=== PATIENT | female | born 1950 | race Caucasian/White ===

== ENCOUNTER 2025-08-09 01:10 | Inpatient (IN) | payer MEDICARE, BC ==
[~2025-08-09] VITALS: Ht 162.6 cm; Wt 83.0 kg
[~2025-08-09 01:10] MED LIST: METH500T PO
[2025-08-09 02:05] LABS: MEAN PLATELET VOLUME 8.7 FL (7.4-10.4); RED CELL DISTRIBUTION WIDTH 13.7 % (11.5-14.5)
[2025-08-09] MEDS: ondansetron/PF 4mg/2ml inj IV ONE (02:30)
[2025-08-09] MEDS: fentaNYL/PF 50MCG/1 ML 2ML syringe IV ONE (02:36)
[2025-08-09 02:50] LABS: CREATININE 0.76 MG/DL (0.40-0.90); TOTAL CARBON DIOXIDE 30.1 MMOL/L (24-32); eCRCL 55 ML/MIN; eGFR 74 ML/MIN
--- NOTE | 2025-08-09 02:50 | Physician Documentation ---
History of Present Illness ~ Chief Complaint: Abdominal Pain Stated Complaint: SEE CHIEF COMPLAINT M ALS Time Seen by MD: 02:48 Mode of Arrival: EMS HPI Patient presents to the emergency room with abdominal pain that has been going on the past few days. History of pancreatitis. She states this feels similar but more severe. She does not drink alcohol and reports no new medications. She did switch from ibuprofen to leave the past few days. She takes daily NSAIDs. No history of heartburn. Bowel movements reported to be soft and sticky but no black stools or blood. Positive nausea. Upon previous admission for pancreatitis no cause could be found for her pancreatitis. She is status post cholecystectomy. Medication Reconciliation Allergies: Uncoded Allergies: PENICILLIN (Allergy, Intermediate, rash, 06/30/13) Scheduled Methocarbamol (Robaxin), 500 MG PO TID Past Medical History Past Medical History: No Pertinent History Past Surgical History: cholecystectomy Alcohol Use: None Drug Use: none Lives with: Family Lives In: Home Occupation: employed Review of Systems ROS All review of systems negative except as per HPI Physical Exam Vital Signs: Temperature: 98.7, Heart Rate: 83, Respiratory Rate: 11, BP: 182/71, Pulse Oximetry: 97, Weight: 83.000 Oxygen Flow Rate: 0 Physical Exam General: Patient is awake, alert, oriented x4 in no acute distress Head: Normocephalic and atraumatic. Eyes: Conjunctival normal. EOMI. PERRL. ENT: Mucous membranes moist. Neck: Supple, trachea is midline. Chest: Clear to auscultation bilaterally without rales, rhonchi, or wheezes. There is no accessory muscle use or retractions. Cardiac: RRR without murmurs, gallops, or rubs. Abd: Soft, nondistended, diffuse tenderness to palpation without peritonitis Progress Results/Orders Results/Orders Orders - LALITO SEYOMUR MD Urinalysis, Cult If Indicated (08/09/25 01:30) Ct Abdomen Pelvis (08/09/25 02:25) LA (08/09/25 01:54) Page Hospitalist (08/09/25 03:23) Fill Out Med Reconciliation (08/09/25 03:23) Completed Orders - LALITO SEYMOUR MD Cbc/Diff (08/09/25 01:30) BMP (08/09/25 01:30) Lipase (08/09/25 01:30) CMP (08/09/25 01:30) Ondansetron Inj. (Zofran 4mg/2ml Vial) (08/09/25 01:55) Fentanyl/Pf (Fentanyl 0.05 Mg/Ml Syringe (08/09/25 01:55) Ct Abdomen Pelvis (08/09/25 02:25) Morphine 4mg/Ml Inj. (Morphine Inj.) (08/09/25 02:55) Normal Saline 1000ml (0.9% Sodium Chlori (08/09/25 03:15) Medications Received in ER Medications (Trade) Dose Ordered Sig/Kiesha Route PRN Reason Start Time Stop Time Status Last Admin Dose Admin (Zofran 4mg/2ml vial) 4 mg ONCE ONCE IV 08/09/25 01:55 08/09/25 01:56 DC 08/09/25 02:30 4 MG (morphine inj.) 2 mg ONCE ONCE IV 08/09/25 02:55 08/09/25 02:56 DC 08/09/25 02:58 2 MG (0.9% sodium chloride (NS) 1000ml IV soln) 2,000 ml ONCE ONCE IVB 08/09/25 03:15 08/09/25 03:16 DC 08/09/25 03:34 2,000 ML Vital Signs 08/09/25 08/09/25 01:26 01:31 Temp 98.7 Pulse 83 Resp 11 B/P (MAP) 182/71 Pulse Ox 97 O2 Flow Rate 0 Laboratory Tests Test 08/09/25 01:39 08/09/25 03:32 White Blood Count 12.8 H Red Blood Count 4.93 Hemoglobin 13.9 Hematocrit 42.0 Mean Corpuscular Volume 85.0 Mean Corpuscular Hemoglobin 28.3 Mean Corpuscular Hemoglobin Concent 33.2 Red Cell Distribution Width 13.7 Platelet Count 240 Mean Platelet Volume 8.7 Neutrophils (%) (Auto) 90.7 H Lymphocytes (%) (Auto) 4.7 L Monocytes (%) (Auto) 4.6 Eosinophils (%) (Auto) 0 Basophils (%) (Auto) 0 Neutrophils # (Auto) 11.6 H Lymphocytes # (Auto) 0.6 L Monocytes # (Auto) 0.6 Eosinophils # (Auto) 0.0 Basophils # (Auto) 0.0 CBC Comment Sodium Level 139 Potassium Level 4.2 Chloride Level 103 Carbon Dioxide Level 30.1 Anion Gap 6 L Blood Urea Nitrogen 17 Creatinine 0.76 Estimated GFR/1.73 m2 74 BUN/Creatinine Ratio 22.4 H Glucose Level 200 H Calcium Level 8.0 L Total Bilirubin 0.4 Aspartate Amino Transf (AST/SGOT) 144 H Alanine Aminotransferase (ALT/SGPT) 97 H Alkaline Phosphatase 91 Total Protein 6.8 Albumin 3.7 Globulin 3.1 Albumin/Globulin Ratio 1.2 Lipase > 375 H Chemistry Comments Medical Decision Making Additional information obtaine: old records Findings Patient presents to the emergency room with abdominal pain. Workup consistent with pancreatitis. IV fluids initiated. That has patient's lipase that has off the charts we will admit Diff Dx GI Bleed:Consideration: Include: AE fistula, Angiodysplasia, Bleeding d iathesis, Blood loss anemia, Carcinoma, Diverticulosis, Diverticulitis, Esophageal varicies, Esophagitis, Gastritis, Gastroenteritis, Inflammatory BD, Cassidy-Wiggins syndrome, Meckel's diverticulum, PUD, Other Diff Dx Pain:Considerations: Include: AAA, -Complete, - Incomplete, -Inevitable, -Missed, -Threatened, Abruptio placentae, Angina/DE, Aortic dissection, Appendicitis, Bowel obstruction, Cholangitis, Cholecystitis, Cholelithasis, Constipation, Diverticular disease, Dysmenorrhea, Ectopic , Esophageal rupture, Esophagitis, Gastritis/PUD, Gastroenteritis, GI hemorrhage, Hernia, Hepatitis, Inflammatory BD, Ischemic bowel, Mass, Ovarian cyst/torsion, Pancreatitis, PID, Porphyria, Trauma, in traabdominal, Urinary obstruction, Urinary tract infection, Urolithiasis, Other Diff Dx N/V/D:Considerations: Include: Appendicitis, Bowel obstruction, Dehydration, DKA, Diarrhea - bacterial, Diarrhea - parasitic, Diarrhea - viral, Diverticulitis, Diverticulosis, Drug toxicity, Electrolyte imbalance, Food poisoning, Gastroenteritis, GE reflux, GI bleed, Hepatitis, Hernia, Hypovolemia, Hypotension, Inflammatory BD, Impaction, Malnutrition, Pancreatitis, , PUD, Renal failure, Urolithiasis, Urinary obstruction, UTI, Other Diff Dx Rectal:Considerations: Include: Fissure, Fistula, Foreign body, Impaction, Perirectal abscess, Rectal prolapse, Subcutaneous abscess, Thrombosed hemorrhoid, Ulcer, UTI, Other Departure Admitted to Inpatient Unit: yes, to hospitalist Impression: Primary Impression: Pancreatitis Condition: Guarded Referrals: NO PRIMARY CARE PROVIDER (PCP) Signature Scribe Signature: No scribe Attestation: The note accurately reflects work and decisions made by me.Lalito Seymour MD 08/09/25 03:54 LALITO SEYMOUR MD Aug 09, 2025 02:50
[2025-08-09] MEDS: morphine 4 MG/ML inj SYRINge IV ONE (02:58)
--- NOTE | 2025-08-09 03:20 | RADIOLOGY REPORT ---
Exam: CT CT ABDOMEN PELVIS History: Abdominal pain COMPARISON: None Technique: Multidetector spiral CT of the abdomen and pelvis was performed from lung bases to pubic symphysis. Intravenous contrast was administered during this examination. Portal venous imaging was obtained. Axial, coronal and sagittal multiplanar reformats were performed by the technologist on a separate workstation. Radiation Dose : 1. Abdomen/Pelvis: CTDIvol 20.79 mGy, DLP 960.43 mGy*cm. CONTRAST: Type of contrast: Contrast injected: ml Contrast ingested: ml Findings: Lung Bases: No acute or significant lung base finding. Normal heart size. No pleural or pericardial effusion. Liver: The liver is normal in size. No focal lesions. Normal hepatic vascular enhancement. Gallbladder and Biliary Tree: Moderate reservoir effect status post cholecystectomy. Spleen: Unremarkable Pancreas: Moderate diffuse peripancreatic inflammatory change and fluid consistent with sequelae of Acute pancreatitis. No definite pseudocyst or abscess. Adrenal Glands: Unremarkable Kidneys: No hydronephrosis. Bladder: Unremarkable Bowel: Moderate fluid-filled hiatal hernia. The stomach is grossly normal in appearance. Moderate wall thickening and intramural edema of the 3rd and 4th portions of the duodenum, likely secondary to peripancreatic inflammatory change. Diverticulosis coli without CT evidence of acute diverticulitis. Small bowel and colon are otherwise normal in caliber and distribution. The appendix is not visualized; however, no secondary findings of acute appendicitis identified. Ascites: Small volume perihepatic and pelvic ascites. Lymphadenopathy: No mesenteric, retroperitoneal or periportal lymphadenopathy. Abdominal Wall and Mesentery: Unremarkable. Vasculature: The visualized abdominal aorta is normal in size and caliber. Atherosclerotic vascular calcifications. Abdominal and pelvic vessels demonstrate normal enhancement. Pelvic Organs: 1.3 cm probable calcified uterine fibroid. Otherwise, unremarkable. Musculoskeletal: No aggressive focal bony lesions, acute fractures or dislocation. IMPRESSION: 1. Findings consistent with acute pancreatitis. 2. Fluid containing small hiatal hernia. 3. Small volume perihepatic and pelvic ascites. 4. Diverticulosis coli without CT evidence of acute diverticulitis. Radiation optimization: All CT scans at this facility use at least one of these dose optimization techniques: automated exposure control mA and/or kV adjustment per patient size (includes targeted exams where dose is matched to clinical indication) or iterative reconstruction.
[2025-08-09] MEDS: normal saline 1000ML IV soln IVB ONE (03:34)
[2025-08-09] MEDS ORDERED: magnesium hydroxide 30ml (MOM) UD suspension PO PRN (03:50)
[2025-08-09] MEDS ORDERED: magnesium sulf-water 4G/100mL 100 ML IV PRN (03:50)
[2025-08-09] MEDS ORDERED: metoclopramide 5 mg/ml inj IV PRN ×2 (03:50→11:05)
[2025-08-09] MEDS ORDERED: potassium Cl 40MEQ/1/2NS 520ml 520 ML IV PRN (03:50)
[2025-08-09] MEDS ORDERED: potassium Cl 20 mEq SR tablet PO PRN ×2 (03:50)
[2025-08-09] MEDS ORDERED: magnesium Cl slow-release 64mg tablet PO PRN (03:50)
[2025-08-09] MEDS ORDERED: mag hydrox/Alum hydrox/simeth 30ml oral suspension PO PRN (03:50)
[2025-08-09] MEDS ORDERED: magnesium sulf-water 2g/50mL 50 ML IV PRN (03:50)
[2025-08-09] MEDS ORDERED: ondansetron/PF 4mg/2ml inj IV PRN ×2 (03:50→11:05)
[2025-08-09 04:17] LABS: APTT 24 SECONDS (22-32); INR 1.0 INR
[2025-08-09 04:26] LABS: PHOSPHORUS 3.7 MG/DL (2.3-4.5); PRO BRAIN NATRIURETIC PEPTIDE 81 PG/ML (0-450)
--- NOTE | 2025-08-09 04:52 | HISTORY AND PHYSICAL-Residence ---
History & Physical Providers to CC Resident Creating Document: LIV VALENCIA, RES ~ History of Present Illness Reason for Admit\Complaint: Abdominal pain History of Present Illness This is a 75 years old female with history of pancreatitis, cholecystectomy, hypertension, hyperlipidemia, arthritis presented to the ED with chief complaint of gradually progressive, burning and cramping type of upper abdominal pain radiating to all over the abdomen and back with intensity of 8/10 started around 9:00 p.m. yesterday associated with mild nausea. Patient reports that she takes ibuprofen for arthritis pain in the legs occasionally and she took [id number] Aleve (naproxen) from past 2 days. Patient denies smoking, alcohol intake, vomiting, constipation, diarrhea, acid reflux, dyspepsia, burping, blood in the stools, trauma, recent food intake outside, recent sick contacts, chest pain, difficulty in breathing, lightheadedness, swelling of legs. Patient reports similar kind of episode in March 2025 and diagnosed with pancreatitis with unknown etiology. Patient denies any steroid use. Allergies: Uncoded Allergies: PENICILLIN (Allergy, Intermediate, rash, 06/30/13) Home Medications Home Medications Active Robaxin (Methocarbamol) 500 Mg Tablet 500 Mg PO TID Past Medical History Past Medical History Pancreatitis Hypertension Hyperlipidemia Arthritis in the legs Past Surgical History Surgical History Comment Cholecystectomy Past Social History Social History Comment she quit smoking long time ago, used to smoke cigarettes at the age of 20s. Drinks wine rarely, last drink was in Oct 2024 Denies any recreational drug use Lives alone Retired Smoking: Non-Smoker Alcohol Use: None Drug Use: None Lives with: Family Lives In: Home Occupation: employed ROS ROS Constitutional: No fever, chills, dizziness, weight gain or loss, night sweats Eyes: No pain, erythema, discharge, blurring of vision ENT: No sore throat, epistaxis, tinnitus Cardiovascular:No chest pain, palpitations, syncope, lower extremity edema, paroxysmal nocturnal dyspnea Respiratory: No Shortness of breath and cough, No hemoptysis. Gastrointestinal: Reports Abdominal pain, no vomiting, no nausea and melena. Normal appetite. No constipation,diarrhea, hematemesis, Musculoskeletal: No swelling or edema of extremities. Integumentary: No change in skin, hair, nails. No swelling, bruising, abrasions Neurologic: No weakness,No headache, neck pain, numbness or tingling of the extremities, Psychiatric: No delusions, depression, loss of interest in normal activity or change in sleep pattern, hallucinations, suicidal ideations Endocrine: No fatigue, no weakness. polydipsia, polyuria, change in appetite, heat or cold intolerance, sweating, dry skin Hematological: No bleeding, petechiae, bruising Allergies: No asthma or urticaria Exam Vitals: Vital Signs Date Time Temp Pulse Resp B/P (MAP) Pulse Ox O2 Delivery O2 Flow Rate FiO2 08/09/25 03:30 77 25 118/70 (86) 95 0 08/09/25 02:30 98.7 General: Awake , alert and oriented to time,place, person, not in distress HEENT: Atraumatic, normocephalic, PERRLA, EOMI, anicteric sclera ; pink conjunctiva, dry mucos membranes Neck: Trachea midline. Supple, normal range of motion, no JVD, no lymphadenopathy Chest and Respiratory: Equal breath sounds bilaterally, no tachypnea, wheezing, ronchi,rubs .Chest wall is symmetric and without deformity. Cardiac: S1, S2 heard,Regular rate and rhythm, no murmurs ,no gallops, no rubs. Abdomen: Soft, mild tenderness in the upper abdomen, No guarding or rigidity, Blackmon's sign negative, no CVA tenderness, normal bowel sounds x4 quadrant, no hepatosplenomegaly MSK: Range of motion of all extremities are normal. There is no joint pain or joint swelling or joint erythema. There is no muscle pain or tenderness or swelling. Extremities: warm, well-perfused, No cyanosis, clubbing, 2+ pulses felt Neurological: Mental status exam: alert and consciousness, orientation, memory, speech - Cranial nerve test: Cranial nerves II-XII intact. - Motor system: Normal Nutrition, normal tone, Power 5/5, no involuntary movements - Sensory system: Intact - Reflex testing: Biceps, triceps and knee reflexes 2+ - Cerebellar: Normal Skin: Warm and dry Psychiatry: Affect and mood are normal Diagnostic Data Last Recorded Lab Results: 08/09/259 08/09/25138 Diagnostic Data: Laboratory Tests Test 08/09/25 01:39 Prothrombin Time 10.2 SECONDS (9.0-12.0) INR International Normalized Ratio 1.0 INR Activated Partial Thromboplast Time 24 SECONDS (22-32) Coagulation Comments Advance Care Planning Advanced Care plannin - 30 Minutes Additional Plan Recurrent acute pancreatitis with unknown etiology Meets sirs criteria Patient has diffuse generalized abdominal pain & radiating to back CBC showed leukocytosis, lactate is 3.5 Lipase is > 375, AST, ALT are slightly elevated. Calcium is 8.0, 2 L of IV NS bolus was given in the ER, CT abd: Moderate diffuse peripancreatic inflammatory change and fluid consistent with sequelae of Acute pancreatitis.No definite pseudocyst or abscess. Fluid containing small hiatal hernia. Small volume perihepatic and pelvic ascites. plan: follow up on amylase follow up on lipid panel Repeat lactate level Follow up on UDS Recheck home medication Repeat lipase levels Held Aleve (Naproxen) IV Zofran 4 mg p.r.n. for nausea and vomiting Pain management with IV Dilaudid p.r.n. IV Protonix 40 mg q.12h Ordered 1 L of IV NS bolus Continue IV NS @150 mL/hour NPO for now with ice chips and water Consulted the drug safety specialist Lactic acidosis lactate is 3.5 3 L of IV NS bolus was given Repeat lactate level Dehydration Patient has dry mucous membranes, capillary refilling time > 2 seconds 3 L of IV NS bolus was given Continue IV NS @150 mL/hour Hypertension Blood pressure is stable Continue home med lisinopril after med rec Hyperlipidemia Follow up on lipid panel Continue home med statin after med rec Pending home med reconciliation Code status: Full code DVT prophylaxis : Lovenox GI prophylaxis: Protonix Nutrition: NPO for now with ice chips and water Physical therapy: ordered Line/tube: PIV Analgesia/sedation: Dilaudid Disposition: Continue medical management, advance diet if patient tolerates, Pain management. Resident attestation The above note has been reviewed and supervised by a senior resident PGY2/PGY3 Patient was seen, examined and discussed with the attending physician Juanita Valencia MD Internal Medicine Resident, PGY 1 Attending Physician Attestation Evaluation via HIPAA compliant A/V device. I discussed the case with the resident and I agree with the resident's documentation. 75-year-old woman with a history of recurrent pancreatitis despite prior cholecystectomy. The treatment plan includes: Usual measures for treatment of acute pancreatitis including crystalloid hydration, opioid analgesia, and bowel rest. Gastroenterology evaluation to assist in establishing the etiology of the patient's recurrent pancreatitis. Time spent 50 minutes. Date of Service: Aug 09, 2025 Billing Provider: CATIE SILVA MD, SUNIL KUMAR, RES Aug 09, 2025 04:52 CATIE SILVA MD Aug 09, 2025 09:08
[2025-08-09] MEDS: normal saline 1000ml 1,000 ML IV ONE (05:32)
[2025-08-09 05:34] VITALS: TEMP 98.7
[2025-08-09] MEDS: normal saline 1000ml 1,000 ML IV SCH (07:29)
[2025-08-09] MEDS: K and/or MAG REPLACEMENT MC SCH (07:50)
[2025-08-09] MEDS: docusate sod 100mg capsule PO SCH (07:50)
--- NOTE | 2025-08-09 07:52 | RADIOLOGY REPORT ---
CHEST RADIOGRAPH Indication: any pulomary edema or congestion Technique: Single frontal view of the chest was obtained Comparison: None FINDINGS: Lines and Tubes: None Lungs: No focal consolidation. Pleura: No effusion. No pneumothorax. Cardiomediastinal contours: Cardiomegaly with CHF Bones: No acute osseous abnormality. IMPRESSION: Cardiomegaly with CHF
[2025-08-09] MEDS ORDERED: sodium bicarbonate (8.4%) 1 mEq/ml syringe ONE (08:00)
[2025-08-09] MEDS ORDERED: rocuronium 10mg/ml inj IV ONE (08:00)
[2025-08-09] MEDS ORDERED: epiNEPHrine 0.1mg/ml 10ml syringe ONE (08:00)
[2025-08-09] MEDS ORDERED: calcium chloride 100 MG/1 ML inj IV ONE (08:00)
[2025-08-09 08:39] LABS: CHOL/HDL RATIO 2.3 (0.00-4.99); LDL CHOLESTEROL 65 MG/DL (50-100)
[2025-08-09 08:40] LABS: ETHANOL < 10 MG/DL (<10)
[2025-08-09] MEDS: enoxaparin 40mg/0.4ml syringe SUBCUT SCH (09:17)
[2025-08-09] MEDS: ringers solution, lacted 1,000 ML IV SCH (09:21)
[2025-08-09 09:23] LABS: LEUKOCYTE ESTERASE ,URINE SMALL (Neg); NITRITES, URINE NEGATIVE (Neg); OCCULT BLOOD,URINE NEGATIVE (Neg)
[2025-08-09 09:27] LABS: UA COLLECTION TYPE OTHER
[2025-08-09 09:30] LABS: MUCUS STRANDS NONE SEEN /LPF (Neg); SQUAMOUS EPITHELIAL CELL,UR FEW /LPF (FEW)
[2025-08-09 09:31] LABS: FINE GRANULAR CAST 0-3 /LPF (NEGATIVE); HYALINE CASTS 0-3 /LPF (NEGATIVE); WBC CLUMPS,URINE FEW /HPF (NEGATIVE)
[2025-08-09] MEDS: metroNIDAZOLE-Flagyl 500mg/NS 100 ML IV ONE (10:04)
[2025-08-09] MEDS ORDERED: metoprolol tartrate 1mg/ml inj IV STA (10:17)
[2025-08-09] MEDS ORDERED: metoprolol tartrate 1mg/ml inj IV PRN (10:20)
[2025-08-09] MEDS: CefTRIAXone 2gm/D5W 50ml BAG 50 ML IV ONE (10:22)
[2025-08-09] MEDS: ringers solution, lacted 1,000 ML IV ONE (10:48)
[2025-08-09 10:54] LABS: URINE AMPHETAMINE SCREEN NEGATIVE (Neg); URINE BARBITUATE SCREEN NEGATIVE (Neg); URINE BENZODIAZEPINES SCREEN NEGATIVE (Neg); URINE CANNABINOID SCREEN NEGATIVE (Neg); URINE COCAINE SCREEN NEGATIVE (Neg); URINE METHADONE SCREEN NEGATIVE (Neg); URINE OPIATE SCREEN NEGATIVE (Neg); URINE PHENCYCLIDINE SCREEN NEGATIVE (Neg)
--- NOTE | 2025-08-09 10:57 | ELECTROCARDIOGRAPH REPORT ---
[facility] Test Date: 2025-08-09 Test Time: 10:53:31 Pat Name: MIGUEL COTTER Department: [facility]-ED HOLD Patient ID: [facility]-[id number] Room: ED 3 1 Gender: F Wire Roller: : 1950 Requested By: CHRISTOPHER MILLER Order Number: [id number] Reading MD: Dr. Zenon Giang Measurements Intervals [place] Rate: 130 P: 63 ME: 127 QRS: -30 QRSD: 82 T: 15 QT: 304 QTc: 447 Interpretive Statements Sinus tachycardia Probable left atrial enlargement Left axis deviation Abnormal R-wave progression, late transition Electronically Signed On 08-13-2025 20:44:[address] Zenon Giang Please click the below link to view image of tracing.
[2025-08-09] MEDS: metoprolol tartrate 1mg/ml inj IV ONE (11:35)
--- NOTE | 2025-08-09 12:01 | CONSULTATION REPORT - RESIDENT ---
Consult Providers to CC Resident Creating Document: FERN DAO RES History of Present Illness Reason for Admit\Complaint: Acute pancreatitis History of Present Illness This is a 75 yr old woman with pmh of recurrent pancreatitis and Hypertenstion, presented to the ER due to acute onset of severe abd pain since 2 days, gradually progressive /, radiating to the back, crampaing type associated with nausea. S/p cholecystectomy. No fever/ chills, constipation/ diarrhoea, weightloss, S/p cholecystectomy, no h/o alcohol or drug abuse. Along with abd pain, she appears to be extremely short of breath even unable to converse with tachypnea and tachycardia. She has received 3L of LR till now. She just received metoprolol for tachycardia, the heart rate prior to metoprolol therapy was in 140s, 5 minutes after receiving metoprolol the heart rate came down to 100. Diastolic blood pressure also was high at 105 although the systolic was at 1:27 a.m.. This was very concerning especially the shortness of breath and she unable even to talk to us, the nurse was called and the nurse said that she is short-winded because she just moved from the bed side commode to the bed. After 5 minutes of evaluation patient was still very short winded and short of breath and the nurse was told that it is very unlikely secondary to she mobilized with a bedside commode to the bed. Allergies: Uncoded Allergies: PENICILLIN (Allergy, Intermediate, rash, 06/30/13) Home Medications Home Medications Active Robaxin (Methocarbamol) 500 Mg Tablet 500 Mg PO TID Past Medical History Past Medical History Pancreatitis Hypertension Hyperlipidemia Arthritis in the legs Past Surgical History Surgical History Comment Cholecystectomy Past Social History Social History Comment Social History Comment she quit smoking long time ago, used to smoke cigarettes at the age of 20s. Drinks wine rarely, last drink was in Oct 2024 Denies any recreational drug use Lives alone Retired Smoking: Non-Smoker Alcohol Use: None Drug Use: None Lives with: Family Lives In: Home Occupation: employed Exam Vitals: Vital Signs Date Time Temp Pulse Resp B/P (MAP) Pulse Ox O2 Delivery O2 Flow Rate FiO2 08/09/25 11:35 145 08/09/25 10:32 30 99/52 (68) 95 0 08/09/25 05:34 98.7 Diagnostic Data Last Recorded Lab Results: 08/09/[id number] Diagnostic Data: Laboratory Tests Test 08/09/25 01:39 Prothrombin Time 10.2 SECONDS (9.0-12.0) INR International Normalized Ratio 1.0 INR Activated Partial Thromboplast Time 24 SECONDS (22-32) Coagulation Comments Additional Plan Assessment: This is a 75 yr old female with Acute pancreatitis of unknown etiology in SIRS criteria meeting 3/3 diagnostic criteria of Abd pain, elevated lipase and CT findings of Diffuse peripancreatic inflammatory change and fluid consistent with sequelae of Acute pancreatitis. She has undergone cholecystectomy, however there can be microlithasis or stenotic ampulla of Vater and she might benefit from MRCP and EUS. Given her age and lack of there differentials, Pancreatic malignancy should be high up in the differentials and she may benefit from 3mm slice MRI. Alcohol, drug induced, autoimmune and hypertrigycerides are unlikey cause of acute pancreatitis in this patient. At present her SOB at rest is very concerning for worsening pancreatitis leading to ARDS to heart failure due to fluid overload. Current Xray is leaning more towards cardiac etiology, however, it is beneficial to repeat and X ray at this point. The ER physician was alerted at this time, we were told that the patient is already admitted, the admitting physician commercial lending assistant Santo Lyman was called and alerted about our concern regarding the respiratory status and the tachycardia. Recommended close monitoring given, possibly for an ICU admission. Plan: Fluid resuscitation with LR without causing overt fluid overload. Protonix 40 mg IV bid. Start the patient on soft bland diet as tolerated with good nausea control with IV Zofran. Pain management with [place] Ordered [place] 19-9 Can continue her home medication including lisinopril and atorvastatin Rest of the conditions managed by the hospitalist team. Fern Dao MD Internal Medicine, PGY 1 [facility] Sepsis Screening Reassessment Date: Aug 09, 2025 Date of Service: Aug 09, 2025 Billing Provider: JEF KAPLAN MD, SHIVANI, RES Aug 09, 2025 12:01 JEF KAPLAN MD Aug 09, 2025 16:43
[2025-08-09] MEDS ORDERED: ringers solution, lacted 1,000 ML IV SCH (12:45)
--- NOTE | 2025-08-09 12:49 | RADIOLOGY REPORT ---
CHEST RADIOGRAPH Indication: effusion Technique: Single frontal view of the chest was obtained COMPARISON: DI CHEST,SINGLE VIEW on DOS: 08/09/25 FINDINGS: Lines and Tubes: None Lungs: Bibasilar subsegmental atelectasis. Low lung volumes. Pleura: No effusion. No pneumothorax. Cardiomediastinal contours: Cardiomegaly Bones: Unremarkable IMPRESSION: Low lung volumes with bibasilar subsegmental atelectasis.
[2025-08-09 12:53] LABS: CREATININE 0.71 MG/DL (0.40-0.90); TOTAL CARBON DIOXIDE 16.4 MMOL/L (24-32); eCRCL 59 ML/MIN; eGFR 80 ML/MIN
[2025-08-09 12:59] LABS: ABG BASE EXCESS -16.4 mmol/L (-2.0-3.0); ABG HCO3 12.6 mmol/L (21.0-28.0); ABG OXYGEN SATURATION 82.5 % (94.0-98.0); ABG PCO2 (T) 40.4 mmHg (32.0-45.0); ABG PH (T) 7.110 (7.350-7.450); ABG PO2 (T) 55.1 mmHg (83.0-108.0); ALLEN'S TEST POSITIVE; FCOHb 0.4 % (0.5-1.5); FHHb 17.4 % (0.0-5.0); FIO2 21.0 mmHg/%; FLOW 0 L/min; FMetHb 0.1 % (0.0-1.5); FO2Hb 82.1 % (94.0-98.0); MODE ROOM AIR; PATIENT TEMPERATURE 36.9; TOTAL HEMOGLOBIN 15.6 G/dl (12.0-16.0)
[2025-08-09 13:11] VITALS: BP 169/149; PULSE 140; RESP 26; O2SAT 80
[2025-08-09] MEDS: propofol 1000mg/100ml bottle 100 ML IV ONE (13:24)
[2025-08-09] MEDS ORDERED: NORepinephrine 8mg/ 250ml NS 250 ML IV PRN (13:25)
[2025-08-09] MEDS: propofol 1000mg/100ml bottle 100 ML IV SCH (13:25)
[2025-08-09] MEDS: sodium bicarbonate 1meq/ml inj 150 ML in sodium chloride 0.45% 1,000 ML IV SCH (13:45)
--- NOTE | 2025-08-09 14:32 | Physician Documentation ---
History of Present Illness ~ Chief Complaint: Abdominal Pain Stated Complaint: SEE CHIEF COMPLAINT M ALS Time Seen by MD: 13:42 Mode of Arrival: EMS HPI I was alerted by the nursing staff due to the patient's sudden change in mental status. Patient had suddenly become unresponsive and was having agonal breathing. Patient had been admitted with acute pancreatitis and was awaiting a bed in the ICU. Upon my assessment the patient had become pulseless and a code blue was initiated. Medication Reconciliation Allergies: Uncoded Allergies: PENICILLIN (Allergy, Intermediate, rash, 06/30/13) Scheduled Methocarbamol (Robaxin), 500 MG PO TID Past Medical History Past Medical History: No Pertinent History Past Surgical History: cholecystectomy Smoking Status: Never smoker Alcohol Use: None Drug Use: none Lives with: Family Lives In: Home Occupation: employed Physical Exam Vital Signs: Temperature: 98.7, Source: Oral, Heart Rate: 140, Respiratory Rate: 26, BP: 169/149, Pulse Oximetry: 80, Weight: 83.000 Oxygen Flow Rate: 15.0 Physical Exam I have reviewed the triage vitals. CONST: Unresponsive HENT: Head Atraumatic EYES: Peak pulls are fixed and dilated CARDIO: Tachycardic PULM/CHEST: Decreased breath sounds bilaterally, agonal breathing ABD: Soft Nondistended. : Exam deferred MSK: No edema. No deformity. NEURO: Unresponsive SKIN: Pale Procedures ACLS ACLS performed: under my direction, see Code Blue flow sheet Intubation Intubation Time: 1312 Intubation Method: orotracheal Endotracheal Tube Size: 7.5 Medications: Etomidate, other ETT Confirmation: Ascultation, CO2 Detector, Direct Visualization Breath Sounds After Intubation: equal Intubation Complications: no complications Progress Results/Orders Results/Orders Vital Signs 08/09/25 08/09/25 08/09/25 08/09/25 01:26 01:31 02:30 03:30 Temp 98.7 98.7 Pulse 83 82 77 Resp 11 17 25 B/P (MAP) 182/71 194/106 (135) 118/70 (86) Pulse Ox 97 98 95 O2 Flow Rate 0 0 0 Laboratory Tests Test 08/09/25 01:39 08/09/25 03:32 White Blood Count 12.8 H Red Blood Count 4.93 Hemoglobin 13.9 Hematocrit 42.0 Mean Corpuscular Volume 85.0 Mean Corpuscular Hemoglobin 28.3 Mean Corpuscular Hemoglobin Concent 33.2 Red Cell Distribution Width 13.7 Platelet Count 240 Mean Platelet Volume 8.7 Neutrophils (%) (Auto) 90.7 H Lymphocytes (%) (Auto) 4.7 L Monocytes (%) (Auto) 4.6 Eosinophils (%) (Auto) 0 Basophils (%) (Auto) 0 Neutrophils # (Auto) 11.6 H Lymphocytes # (Auto) 0.6 L Monocytes # (Auto) 0.6 Eosinophils # (Auto) 0.0 Basophils # (Auto) 0.0 CBC Comment Prothrombin Time 10.2 INR International Normalized Ratio 1.0 Activated Partial Thromboplast Time 24 Coagulation Comments Sodium Level 139 Potassium Level 4.2 Chloride Level 103 Carbon Dioxide Level 30.1 Anion Gap 6 L Blood Urea Nitrogen 17 Creatinine 0.76 Estimated GFR/1.73 m2 74 BUN/Creatinine Ratio 22.4 H Glucose Level 200 H Hemoglobin A1c 5.1 Calcium Level 8.0 L Phosphorus Level 3.7 Magnesium Level 1.8 Total Bilirubin 0.4 Aspartate Amino Transf (AST/SGOT) 144 H Alanine Aminotransferase (ALT/SGPT) 97 H Alkaline Phosphatase 91 Pro-B-Type Natriuretic Peptide 81 Total Protein 6.8 Albumin 3.7 Globulin 3.1 Albumin/Globulin Ratio 1.2 Amylase Level 1060 H Lipase > 375 H Procalcitonin < 0.05 Chemistry Comments Lactic Acid Level 3.5 H Medical Decision Making Additional information obtaine: N/A Findings na Differential Dx:Considerations: Include Cardiopulmonary arrest, Include Cardiogenic shock, Include Cardiac tamponade, Include Electrolyte Disorder, Include Myocardial infaction, Include Pulmonary embolus, Include Respiratory failure Additional Comment 75-year-old male presenting with acute cardiac arrest. Code blue was initiated and ACLS was performed for over an hour-please see code blue flow sheet. Patient was also intubated. Despite numerous rounds of epinephrine as well as bicarbonate and calcium gluconate we were unsuccessful achieve ROSC and resuscitate the patient. The patient at approximately 2:03 p.m.. Postmortem examination indicated no heart sounds, no breath sounds and fixed dilated pupils. Departure Disposition: 20 Impression: Primary Impression: Pancreatitis Additional Impressions: Cardiac arrest Condition: Guarded Referrals: NO PRIMARY CARE PROVIDER (PCP) Critical Care Note Total Time (mins): 63 Critical Care Note The very real possibility of a deterioration of this patient's condition required the highest level of my preparedness for sudden, emergent intervention. I provided critical care services, which included medication orders, frequent reevaluations of the patient's condition and response to treatment, ordering and reviewing test results, and discussing the case with various consultants. Excludes time spent performing separately billable procedures. The critical care time associated with the care of the patient was. Signature Scribe Signature: 1 Attestation: 1 JANAK GARCIA MD Aug 09, 2025 14:32
[2025-08-09] MEDS: metroNIDAZOLE-Flagyl 500mg/NS 100 ML IV SCH (16:00)
[2025-08-10] MEDS ORDERED: CefTRIAXone 2gm/D5W 50ml BAG 50 ML IV SCH (08:00)
--- NOTE | 2025-08-10 10:32 | DISCHARGE SUMMARY ---
Discharge Summary Providers to CC ~ Discharge Summary Admission Diagnosis: Acute pancreatitis Hospital Course DATE OF ADMISSION: 08/09/25 DATE OF DISCHARGE: 08/09/25 Discharge Diagnosis\\Comment: Severe pancreatitis Acute on chronic pancreatitis Metabolic acidosis Bacteremia- most likely POA Sepsis likely secondary to UTI- most likely POA Distributive shock secondary to combined severe pancreatitis and sepsis Multisystem organ failure secondary to above Cardiac arrest secondary to above Operations\\Procedures: ACLS Consultants: Tracy Garcia Dr. Complications: Condition on DC: Discharge Summary: History of Present Illness From H&P: "This is a 75 years old female with history of pancreatitis, cholecystectomy, hypertension, hyperlipidemia, arthritis presented to the ED with chief complaint of gradually progressive, burning and cramping type of upper abdominal pain radiating to all over the abdomen and back with intensity of 8/10 started around 9:00 p.m. yesterday associated with mild nausea. Patient reports that she takes ibuprofen for arthritis pain in the legs occasionally and she took [id number] Aleve (naproxen) from past 2 days. Patient denies smoking, alcohol intake, vomiting, constipation, diarrhea, acid reflux, dyspepsia, burping, blood in the stools, trauma, recent food intake outside, recent sick contacts, chest pain, difficulty in breathing, lightheadedness, swelling of legs. Patient reports similar kind of episode in March 2025 and diagnosed with pancreatitis with unknown etiology. Patient denies any steroid use." Hospital Course Diagnostic findings were notable for CT abdomen/pelvis revealing cholecystectomy status and acute pancreatitis without abscess, pseudocyst or necrosis and otherwise unremarkable, lipase >3x ULN, mildly low corrected serum calcium, elevated C-reactive protein, urinalysis positive for urinary tract infection, findings of sepsis including mild leukocytosis with left shift, tachycardia and elevated lactic acid, with on admission [place]'s score of 2-3. Pertinent negative findings were negative procal, unremarkable liver function test including alkaline phosphatase of less than 250 U/L and normal t.bilirubin, afe brile, wnl triglycerides, negative serum alcohol with reported rare use of alcohol, low index of suspicion for drug-induced etiology, wnl pBNP, chest xray without evidence of pleural effusions. Patient was treated with bolus fluid resuscitation followed by continuous fluids, empirical antibiotics, and bowel rest. Case was consulted with JUAN FRANCISCO Poole. Further workups including but not limited to MRCP, immunology panel, and malignancy marker were pending. Due to persistent uptrend of lactic acid with arterial blood gas and repeat metabolic panel revealing anion gap metabolic acidosis and given high predicted mortality rate, case was discussed with byproducts extractor Dr. Chacon. Patient remained stable until she developed hyperacute decompensation from severe pancreatitis leading to multisystem organ failure resulting cardiac arrest in the period shortly after. Patient from cardiac arrest despite rigorous resuscitative effort. Physical Exam Pulseless, *Problems/Diagnosis: (1) Cardiac arrest Status: Acute (2) Pancreatitis Status: Acute Total Time Spent on D/C: > 30 Minutes Date of Service: Aug 09, 2025 Billing Provider: CHRISTOPHER MILLER Common Visit Codes: 39951-GJV/OBS DISCH DAY >30min CHRISTOPHER MILLER Aug 10, 2025 09:56
[2025-08-14 05:14] LABS: ENDOMYSIAL ANTIBODY IGA Negative (Negative)
[2025-08-14 15:10] LABS: T-TRANSGLUTAMINASE IGA <2 U/mL (0-3)
== END 2025-08-09 14:04 | DRG 871 ==
LOC: ER 01:11 → UNDOADMIN 03:56 → ED HOLD 03:56 → UNDOADMIN 04:15 → ED HOLD 04:15 → UNDODISIN 14:04
PROVIDERS: ADMIT Internal Medicine Critical Care Medicine; ATTEND Nurse Practitioner Family
PROC: BW211ZZ Computerized Tomography (CT Scan) of Abdomen and Pelvis using Low Osmolar Contrast (ICD-10-PCS; principal; 2025-08-09)
DX: A41.9 Sepsis, unspecified organism (principal); K85.90 Acute pancreatitis without necrosis or infection, unspecified; R57.8 Other shock; E87.20 Acidosis, unspecified; N39.0 Urinary tract infection, site not specified; I46.9 Cardiac arrest, cause unspecified; I10 Essential (primary) hypertension; K86.1 Other chronic pancreatitis; E86.0 Dehydration; E78.5 Hyperlipidemia, unspecified; Z90.49 Acquired absence of other specified parts of digestive tract
CPT/HCPCS: 36415; 36600; 71045; 74176; 80048; 80053; 80061; 80305; 80320; 81001; 82150; 82803; 82948; 83036; 83605; 83690; 83735; 83880; 84100; 84145; 84484; 85018; 85025; 85610; 85730; 86140; 86255; 86301; 87040; 87077; 87088; 87186; 92950; 93005; 94760; 96372; 99285; A4615; A6258; C1751; C1758; G0378; J0169; J0696; J1171; J1650; J2270; J2405; J2470; J2704; J3490; J7030; J7120